=== PATIENT | female | born 1980 | race Caucasian/White ===

== ENCOUNTER → 2017-08-12 | Day surgery (SDC) | payer OTHER ==
[~2017-08-12] VITALS: Ht 162.6 cm; Wt 66.5 kg
[~2017-08-12] MED LIST: ACETAMINOPHEN/HYDROcodone 325 MG/5 MG TAB ONE; BUPIVACAINE/EPINEPHRINE 0.5% PF 30 ML VIAL ONE; CHLORHEXIDINE GLUCONATE 2 % 1 PACK (2 CLOTHS) TOPICAL PRN; CHLORHEXIDINE GLUCONATE 4% SOLN 120 ML BTL TOPICAL SCH; KETOROLAC TROMETHAMINE 30 MG/ML (IVP) VIAL ONE; LACTATED RINGER'S 1000 ML IV PRN; METOPROLOL TARTRATE 25 MG TAB PO PRN; POVIDONE IODINE 5% (ANTISEPSIS KIT) 4 APPLICATIONS EACH NARE PRN; SODIUM CHLORID 0.9% 500 ML IV PRN; TRAM50TA PO; TRIAMCINOLONE ACETONIDE 40 MG/ML VIAL ONE; VENTAER INH
--- NOTE | 2017-08-12 12:15 | MP ---
cc: DAKOTA MACIEL M.D. DATE OF SURGERY 08/12/[address] Dakota Maciel PREOPERATIVE DIAGNOSIS 1. Possible internal derangement of the left knee with left knee pain. 2. Possible soft tissue mass anterolateral left knee. PROCEDURE 1. Arthroscopic subtotal lateral meniscectomy with chondroplasty lateral tibial plateau. 2. Exploration soft tissue with excision of soft tissue possible fibroma or lipoma. DETAILS OF THE PROCEDURE The patient was placed on the operating room table in the supine position. Adequate general anesthesia was administered by the anesthesiologist. The patient's left knee was prepped and draped in the usual sterile fashion. Time-out was called and the patient's name procedure, location, etc. were fully verified. An Esmarch bandage was used to exsanguinate the left lower extremity and a pneumatic tourniquet was inflated to 300 at the level of the proximal thigh. An anterolateral portal was created and the joint was distended with lactated Ringer's solution. Arthroscopic examination revealed patellofemoral joint and suprapatellar pouch to be unremarkable. The anterior and posterior cruciate ligaments were intact. The medial compartment was pristine with no evidence of chondromalacia and no evidence of meniscal tear or instability. Examination of the lateral compartment revealed a radial tear through the middle one-third of the lateral meniscus with some surrounding synovitis. The synovitis was excised through a medial portal with a motorized resector. The radial tear was also excised with the same instrument. The joint was then thoroughly irrigated. No additional findings were noted and all instruments were removed after aspiration. These two stab wounds were then closed with one suture of 3-0 nylon. Attention was then turned to the previously located the soft tissue mass which was very small in size and a 1/2-cm incision was made over the area that was suspected and an exploration of that area revealed some thickening of a fibrous nature which was more consistent with a possible fibroma with a remote possibility of a neuroma. The area was excised through the small incision utilizing sharp and blunt instruments. The wound was then closed with two simple sutures of 3-0 nylon. Xeroform gauze was then applied over all wounds and a bulky compression dressing applied over this following which the tourniquet was deflated and examination of the toes revealed adequate return of circulation. The sponge count and needle counts were reportedly correct x2 and the estimated blood loss was nil. The patient tolerated the procedure well and went to the recovery room in satisfactory condition. MD CHAPIN Canales/VENKAT /11:55 AM /12:01 PM
[2017-08-12 14:00] VITALS: BP 136/78; PULSE 100; RESP 16; TEMP 98.6; O2SAT 98
--- NOTE | 2017-08-12 17:00 | EKG ---
Date Performed: 08/12/2017 Time Performed: 08:53:25 PTAGE: 36 years EKG: Sinus rhythm Since previous tracing, no significant change noted NORMAL ECG PREVIOUS TRACING : 02/14/2012 20.55 DOCTOR: Blossom Ruvalcaba Interpretating Date/Time 08/12/2017 16:59:53
== END | disposition home or self-care (01) ==
LOC: PHSDC 07:23
PROVIDERS: ATTEND Orthopaedic Surgery
DX: S83.282A Other tear of lateral meniscus, current injury, left knee, initial encounter (principal); M65.862 Other synovitis and tenosynovitis, left lower leg; J44.9 Chronic obstructive pulmonary disease, unspecified; K21.9 Gastro-esophageal reflux disease without esophagitis; I48.91 Unspecified atrial fibrillation; X58.XXXA Exposure to other specified factors, initial encounter
CPT/HCPCS: 27618; 29881; 93005; E0113; J1885; J7120; J3301